=== PATIENT | female | born 1940 | race Caucasian/White ===

== ENCOUNTER 2024-09-23 11:19 | Outpatient (CLI) | payer MEDICARE, BC ==
[~2024-09-23 11:19] MED LIST: HYDR-4383 PO
== END 2024-09-23 23:59 | disposition home or self-care (01) ==
LOC: MRI02 11:19
PROVIDERS: ATTEND Nurse Practitioner Adult Health
DX: M51.17 Intervertebral disc disorders with radiculopathy, lumbosacral region (principal); M54.50 Low back pain, unspecified; M79.605 Pain in left leg; M48.061 Spinal stenosis, lumbar region without neurogenic claudication; M47.27 Other spondylosis with radiculopathy, lumbosacral region; M48.07 Spinal stenosis, lumbosacral region
CPT/HCPCS: 72148